=== PATIENT | male | born 1990 | race Hispanic/Latino ===

== ENCOUNTER 2024-10-21 12:40 | Emergency (ER) | payer BC ==
[~2024-10-21] VITALS: Ht 170.2 cm; Wt 63.5 kg
[2024-10-21 12:56] VITALS: BP 114/80; PULSE 54; RESP 16; TEMP 98; O2SAT 98
[2024-10-21] MEDS: OCTYL 2-CYANOACRYLATE 1 EACH TP SCH (13:06)
[2024-10-21] MEDS: OCTYL 2-CYANOACRYLATE 1 EACH TP ONE (13:07)
--- NOTE | 2024-10-21 13:09 | ERN ---
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 States his last tetanus was about 2-3 weeks ago. No other complaints Allergies: Coded Allergies: No Known Drug Allergies (Unverified Allergy, Unknown, 10/21/24) Past Medical History Past Medical History: No Pertinent History Surgical History: None Review of System Dictation Constitutional: Negative for fever,chills, and weight loss Eyes: Negative for injury, pain,redness, and discharge ENT: Negative for injury,pain or swelling Cardiovascular: Negative for chest pain, palpitations, and edema Respiratory: Negative for shortness of breath, cough, and wheezing, Abdomen/GI: Negative for abdominal pain, nausea, vomiting, diarrhea, and constipation Back: Negative for injury and pain : Negative for injury, bleeding and discharge MS/Extremity: Negative for injury and deformity Skin: Negative for rash, and discoloration, laceration to the right hand Neuro: Negative for headache, weakness, numbness, tingling, and seizure Psych: Negative for suicide ideation, homicidal ideation, and hallucinations Review of Systems: was completed Initial Vital Sign VS Vital Signs Date Time Temp Pulse Resp B/P (MAP) Pulse Ox O2 Delivery O2 Flow Rate FiO2 10/21/24 12:44 97.9 49 22 114/82 99 0 10/21/24 12:56 Room Air* 21 Physical Exam Dictation General: awake, alert, NAD Head/Face: Normocephalic, atraumatic Eyes: PERRL, EOMI, vision at baseline ENT: oral cavity clear, TMs clear, no signs of infection Neck: Trachea midline, supple, no nuchal rigidity Cardiovascular: RRR, normal S1/S2, No MRGs, no JVD Respiratory: CTAB, no respiratory distress, No rales or wheezes Abdomen: Soft, non-tender, non-distended, normal bowel sounds, no guarding or rebound. Skin: Warm, dry, normal turgor, no rash about 2.5 cm laceration to the dorsal aspect of the hand slightly below the thumb MS/Extremity: Pulses equal, no cyanosis, neurovascular intact, FROM Neuro: COAx4, GCS 15, strength 5/5, CN 2-12 intact, normal cerebellar exam, normal gait, Psych: Normal behavior, mood, and affect normal ED Course ED Course Orders Procedure Category Date Status Time Dermabond (Dermabond) PHA 10/21/24 In Process 13:00 Dermabond (Dermabond) PHA 10/21/24 Complete 12:53 Current Medications Medications (Trade) Dose Ordered Sig/Venus Route PRN Reason Start Time Stop Time Status Last Admin Dose Admin Octyl Cyanoacrylate (Dermabond) 1 each ONCE TP 10/21/24 13:00 11/20/24 12:59 Octyl Cyanoacrylate (Dermabond) 1 each STK-MED ONCE TP 10/21/24 12:53 10/21/24 12:53 DC Vital Signs Date Time Temp Pulse Resp B/P (MAP) Pulse Ox O2 Delivery O2 Flow Rate FiO2 10/21/24 12:56 98.1 54 16 114/80 98 Room Air* 0 21 10/21/24 12:44 97.9 49 22 114/82 99 0 Medical Decision Making MDM MDM: 34-year-old male with no past medical history coming in for laceration to the dorsal aspect of the right hand 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 States his last tetanus was about 2-3 weeks ago. No other complaints. See procedure note for laceration repair. Educated this with the patient when to return back to the ER. Educated follow up with PCP. Differential diagnosis: Rationale: Tests considered and ordered secondary to shared decision making include: Previous outside records reviewed: Old ER visits. Risk of complication and/or morbidity or mortality of patient management: None Medications-Per medication reconciliation Need for hospitalization: Patient does not meet criteria for hospitalization. Need for emergency major/minor surgery: No There are no social concerns with this patient. Prescription drug management Prescriptions will include symptomatic care Patient's prior external medical records from other ER visits were reviewed by me as indicated. Prior testing and results from previous visits were reviewed. Prior tests were taken into account with medical decision making and resource utilization, independent historian/historians were used to obtain complete medical history. I independently interpreted the test that were performed, results were reviewed by me and considered findings on radiology if ordered. Medical management and examination interpretation discussions were had by me with other qualified healthcare professionals as indicated for the patient's care. Procedure Wound Location: upper extremity Wound Length (cm): 2 Wound's Depth, Shape: superficial Wound Explored: clean Wound Debrided: minimal Wound Repaired With: Dermabond DX & DISP Disposition: Discharge Departure Impression: Primary Impression: Laceration Condition: Stable Additional Instructions: Keep area clean and dry , return if you notice any signs of infection. Follow up with PCP. Time of Disposition: 13:08 I have reviewed the case, and I agree with MAINE FUCHS NP Oct 21, 2024 13:09
== END 2024-10-21 13:20 | disposition home or self-care (01) ==
LOC: EDH 12:40
DX: S61.411A Laceration without foreign body of right hand, initial encounter (principal); W26.8XXA Contact with other sharp object(s), not elsewhere classified, initial encounter; Y93.89 Activity, other specified; Y92.89 Other specified places as the place of occurrence of the external cause; Y99.8 Other external cause status
CPT/HCPCS: 12001; 99282